=== PATIENT | female | born 1935 | race Caucasian/White ===

== ENCOUNTER → 2016-05-19 | Outpatient (CLI) | payer OTHER ==
[~2016-05-19] VITALS: Ht 152.4 cm; Wt 80.0 kg
[~2016-05-19] MED LIST: CALCIUM 600 +1 EAC2 PO; CARTIA XT120 MG PO; CINNAMON500 MG PO; ESSENTIAL WOMA1 EAC1 PO; FISH OIL 1,0001 EAC7 PO; LIBRAX CAPSULE1 EACH PO; LIPITOR40 MG PO; LOPID600 MG PO; LOSARTAN POTASS50 MG PO; PLAVIX75 MG PO; SORIATANE25 MG PO; VITAMIN D1000 INTUN PO
[2016-05-19 07:18] VITALS: BP 118/64
== END | disposition home or self-care (01) ==
LOC: IVINF 07:00
DX: M81.0 Age-related osteoporosis without current pathological fracture (principal)
CPT/HCPCS: 96365; J3489

== ENCOUNTER 2016-11-15 15:33 | Inpatient (IN) | payer OTHER ==
[~2016-11-15] VITALS: Ht 152.4 cm; Wt 98.7 kg
[~2016-11-15 15:33] MED LIST changes: +COZAAR100 MG PO; +LIPITOR20 MG PO; -LIPITOR40 MG PO; -LOSARTAN POTASS50 MG PO; -VITAMIN D1000 INTUN PO; +VITAMIN D31000 UNI2 PO
[2016-11-15 16:12] LABS: MCH 32.1 PG (29.0-34.0); MEAN PLAT.VOLUME 10.3 uM^3 (9.5-12.4); PLATELET COUNT 237 K/uL (156-360); RBC DIS.WIDTH-CV 12.2 % (11.8-14.6); RBC DIS.WIDTH-SD 41.2 % (39-53); RED BLOOD COUNT 3.93 M/uL (3.80-5.20); WHITE BLOOD COUNT 5.4 K/uL (4.1-10.2)
[2016-11-15 16:14] LABS: MCV 91.6 FL (83-99)
[2016-11-15 16:29] LABS: CHLORIDE 104 mEq/L (99-109); SODIUM 136 mEq/L (136-147)
[2016-11-15 16:31] LABS: GLUCOSE 138 mg/dL (70-99)
[2016-11-15 16:32] LABS: ANION GAP 14 MEQ/L (2-14)
[2016-11-15 16:34] LABS: GFR ESTIMATE (CALCULATED) 19 mL/min/
[2016-11-15 16:35] LABS: UREA NITROGEN (BUN) 52 mg/dL (9-23)
[2016-11-15 16:36] LABS: POTASSIUM 2.4 mEq/L (3.7-5.4)
[2016-11-15 16:51] LABS: TOTAL BILIRUBIN 0.4 mg/dL (0.0-1.0)
[2016-11-15 16:52] LABS: ALKALINE PHOSPHATASE 85 IU/L (3-129)
[2016-11-15 16:54] LABS: DIRECT BILIRUBIN 0.2 mg/dL (0.0-0.3)
[2016-11-15 16:55] LABS: LIPASE 28 U/L (1.0-51.0)
[2016-11-15 17:09] LABS: INTER. NORMALIZED RATIO 1.1; TROP-I INTERPRETATION NEGATIVE; TROPONIN-I < 0.01 ng/mL (0.0-0.30)
[2016-11-15 17:12] LABS: PTT 26.2 SEC (25-37)
[2016-11-15] MEDS ORDERED: ZANTAC300 MG PO (19:12)
[2016-11-15] MEDS ORDERED: PERPHEN-AMITRI1 EACH PO (19:14)
[2016-11-15] MEDS ORDERED: LASIX20 MG PO (19:14)
[2016-11-15] MEDS ORDERED: IRON325 M1 PO (19:16)
[2016-11-15] MEDS ORDERED: TYLENOL EXTRA500 MG PO ×2 (19:16)
[2016-11-15 19:42] LABS: ADD MIUA? NO; BILIRUBIN NEGATIVE; BLOOD NEGATIVE; COLOR YELLOW ((YELLOW)); GLUCOSE (STRIP) NEGATIVE; KETONES NEGATIVE; LEUKOCYTES NEGATIVE; NITRITE NEGATIVE; PROTEIN (STRIP) NEGATIVE; UCUL ADDED? NO; UROBILINOGEN 0.2 MG/DL (0.2-1.0)
[2016-11-15 22:16] VITALS: BP 123/59
[2016-11-15 22:58] LABS: CHLORIDE 108 mEq/L (99-109); SODIUM 138 mEq/L (136-147)
[2016-11-15 22:59] LABS: POTASSIUM 3.1 mEq/L (3.7-5.4)
[2016-11-15 23:00] LABS: GLUCOSE 126 mg/dL (70-99)
[2016-11-15 23:01] LABS: ANION GAP 10 MEQ/L (2-14)
[2016-11-15 23:04] LABS: GFR ESTIMATE (CALCULATED) 23 mL/min/; UREA NITROGEN (BUN) 40 mg/dL (9-23)
[2016-11-16 04:27] VITALS: BP 132/60
[2016-11-16 06:06] LABS: HEMATOCRIT 31.9 % (36.0-46.0); MCH 31.6 PG (29.0-34.0); MCHC 33.9 G/DL (30.0-36.0); MCV 93.3 FL (83-99); MEAN PLAT.VOLUME 10.6 uM^3 (9.5-12.4); PLATELET COUNT 224 K/uL (156-360); RBC DIS.WIDTH-CV 12.4 % (11.8-14.6); RBC DIS.WIDTH-SD 42.6 % (39-53); RED BLOOD COUNT 3.42 M/uL (3.80-5.20); WHITE BLOOD COUNT 3.6 K/uL (4.1-10.2)
[2016-11-16 06:23] LABS: ALKALINE PHOSPHATASE 61 IU/L (3-129); ANION GAP 11 MEQ/L (2-14); CHLORIDE 109 MEQ/L (99-109); GFR ESTIMATE (CALCULATED) 39 mL/min/; GLUCOSE 126 mg/dL (70-99); POTASSIUM 3.1 MEQ/L (3.7-5.4); SAMPLE HEMOLYSIS CHECK 0; SAMPLE ICTERIC CHECK 0; SAMPLE LIPEMIA CHECK 0; SODIUM 141 MEQ/L (136-147); TOTAL BILIRUBIN 0.4 MG/DL (0.0-1.0); UREA NITROGEN (BUN) 31 mg/dL (9-23)
[2016-11-16 08:16] VITALS: BP 106/62
[2016-11-16 11:45] VITALS: BP 125/67
[2016-11-16 14:13] LABS: INTERNAL CONTROL VALID? YES
[2016-11-16 14:35] LABS: C DIFF TOXIN NEGATIVE (NEGATIVE)
[2016-11-16 14:41] LABS: PROBE CHECK PASS; SPECIMEN PROCESSING CONTROL PASS
[2016-11-16 16:01] VITALS: BP 136/73
[2016-11-16 19:53] VITALS: BP 137/74
[2016-11-16 23:25] VITALS: BP 132/64
[2016-11-17 04:33] VITALS: BP 131/61
[2016-11-17 06:18] LABS: HEMATOCRIT 31.6 % (36.0-46.0); MCH 32.1 PG (29.0-34.0); MCHC 34.2 G/DL (30.0-36.0); MEAN PLAT.VOLUME 10.2 uM^3 (9.5-12.4); PLATELET COUNT 222 K/uL (156-360); RBC DIS.WIDTH-CV 12.8 % (11.8-14.6); RBC DIS.WIDTH-SD 44.2 % (39-53); RED BLOOD COUNT 3.36 M/uL (3.80-5.20); WHITE BLOOD COUNT 4.8 K/uL (4.1-10.2)
[2016-11-17 06:44] LABS: ANION GAP 7 MEQ/L (2-14); CHLORIDE 115 MEQ/L (99-109); GFR ESTIMATE (CALCULATED) 57 mL/min/; GLUCOSE 118 mg/dL (70-99); MAGNESIUM 2.4 mg/dl (1.3-2.7); POTASSIUM 2.9 MEQ/L (3.7-5.4); SAMPLE HEMOLYSIS CHECK 0; SAMPLE ICTERIC CHECK 0; SAMPLE LIPEMIA CHECK 0; SODIUM 145 MEQ/L (136-147); UREA NITROGEN (BUN) 14 mg/dL (9-23)
[2016-11-17 08:21] VITALS: BP 106/67
[2016-11-17 11:46] VITALS: BP 146/71
[2016-11-17 14:04] LABS: ERTH.SED.RATE 16 MM/HR (0-30)
[2016-11-17 15:53] VITALS: BP 90/53
[2016-11-17 19:56] VITALS: BP 119/56
[2016-11-17 23:55] VITALS: BP 92/54
[2016-11-18 04:01] VITALS: BP 106/59
[2016-11-18 08:02] VITALS: BP 120/61
[2016-11-18 08:34] LABS: HEMATOCRIT 30.2 % (36.0-46.0); MCH 33.7 PG (29.0-34.0); MCHC 35.1 G/DL (30.0-36.0); MCV 95.9 FL (83-99); MEAN PLAT.VOLUME 10.6 uM^3 (9.5-12.4); PLATELET COUNT 208 K/uL (156-360); RBC DIS.WIDTH-CV 13.4 % (11.8-14.6); RBC DIS.WIDTH-SD 46.5 % (39-53); RED BLOOD COUNT 3.15 M/uL (3.80-5.20); WHITE BLOOD COUNT 5.4 K/uL (4.1-10.2)
[2016-11-18 09:00] LABS: ANION GAP 8 MEQ/L (2-14); CHLORIDE 117 MEQ/L (99-109); GFR ESTIMATE (CALCULATED) > 59 mL/min/; GLUCOSE 110 mg/dL (70-99); SAMPLE HEMOLYSIS CHECK 0; SAMPLE ICTERIC CHECK 0; SAMPLE LIPEMIA CHECK 0; SODIUM 145 MEQ/L (136-147); UREA NITROGEN (BUN) 10 mg/dL (9-23)
[2016-11-18 09:04] VITALS: BP 122/60
[2016-11-18 09:05] LABS: POTASSIUM 4.2 MEQ/L (3.7-5.4)
[2016-11-18 11:41] VITALS: BP 108/58
[2016-11-18 16:27] VITALS: BP 131/62
[2016-11-18 20:00] VITALS: BP 126/60
[2016-11-19] VITALS: BP 116/58
[2016-11-19 04:14] VITALS: BP 119/62
[2016-11-19 06:41] LABS: ANION GAP 7 MEQ/L (2-14); CHLORIDE 118 MEQ/L (99-109); GFR ESTIMATE (CALCULATED) > 59 mL/min/; GLUCOSE 96 mg/dL (70-99); POTASSIUM 3.4 MEQ/L (3.7-5.4); SAMPLE HEMOLYSIS CHECK 0; SAMPLE ICTERIC CHECK 0; SAMPLE LIPEMIA CHECK 0; SODIUM 145 MEQ/L (136-147); UREA NITROGEN (BUN) 6 mg/dL (9-23)
[2016-11-19 07:20] VITALS: BP 116/70
[2016-11-19] MEDS ORDERED: METRONIDAZOLE500 MG PO (10:30)
[2016-11-19] MEDS ORDERED: IMODIUM A-D2 M2 PO (10:32)
[2016-11-19] MEDS ORDERED: PREDNISONE10 MG PO (10:32)
[2016-11-19] MEDS ORDERED: K-DUR20 MEQ PO (10:34)
[2016-11-19] MEDS ORDERED: PHOSPHA250 MG PO (10:35)
[2016-11-19 11:17] VITALS: BP 121/69
== END 2016-11-19 13:30 | disposition home or self-care (01) | DRG 392 ==
LOC: EME 15:33 → 3EAST 20:35 → EDOF 20:35 → ENRESERV 20:37 → 3EAST 22:12
PROVIDERS: Emergency Medicine; Internal Medicine; Internal Medicine Gastroenterology; Physician Assistant
DX: K52.831 Collagenous colitis (principal); N17.9 Acute kidney failure, unspecified; E87.2 Acidosis; E87.6 Hypokalemia; E83.39 Other disorders of phosphorus metabolism; R63.4 Abnormal weight loss; E86.0 Dehydration; I25.10 Atherosclerotic heart disease of native coronary artery without angina pectoris; I12.9 Hypertensive chronic kidney disease with stage 1 through stage 4 chronic kidney disease, or unspecified chronic kidney disease; N18.3 Chronic kidney disease, stage 3 (moderate); J45.909 Unspecified asthma, uncomplicated; F41.9 Anxiety disorder, unspecified; E66.9 Obesity, unspecified; Z86.73 Personal history of transient ischemic attack (TIA), and cerebral infarction without residual deficits; Z95.5 Presence of coronary angioplasty implant and graft; Z79.02 Long term (current) use of antithrombotics/antiplatelets; Z85.828 Personal history of other malignant neoplasm of skin; Z68.41 Body mass index [BMI] 40.0-44.9, adult
CPT/HCPCS: 74176; 80048; 80048 91; 80053; 80076; 81003; 82040; 83516 90; 83605; 83630; 83690; 83735; 83880; 84100; 84439; 84443; 84484; 85027; 85610; 85651; 85730; 87177; 87493; 88305; 88313; 93005; 99281; 99285; J1644; J2405; J3480; J7030; J7050; J7512; S0030

== ENCOUNTER 2017-07-22 08:46 | Observation (INO) | payer OTHER ==
[~2017-07-22] VITALS: Ht 152.4 cm; Wt 74.7 kg
[~2017-07-22 08:46] MED LIST changes: -CALCIUM 600 +1 EAC2 PO; +CALCIUM600 M1 PO; +IMODIUM A-D2 M2 PO; +IRON325 M1 PO; +K-DUR20 MEQ PO; +LASIX20 MG PO; -LIPITOR20 MG PO; +LIPITOR40 MG PO; +METRONIDAZOLE500 MG PO; +PERPHEN-AMITRI1 EACH PO; +PHOSPHA250 MG PO; +PREDNISONE10 MG PO; +TYLENOL EXTRA500 MG PO; +ZANTAC300 MG PO
[2017-07-22 09:27] LABS: HEMATOCRIT 36.8 % (36.0-46.0); HEMOGLOBIN 12.9 G/DL (11.9-15.5); MCH 32.7 PG (29.0-34.0); MCHC 35.1 G/DL (30.0-36.0); MCV 93.2 FL (83-99); PLATELET COUNT 179 K/uL (156-360); RBC DIS.WIDTH-CV 12.7 % (11.8-14.6); RBC DIS.WIDTH-SD 43.8 % (39-53); RED BLOOD COUNT 3.95 M/uL (3.80-5.20); WHITE BLOOD COUNT 7.1 K/uL (4.1-10.2)
[2017-07-22 09:41] LABS: CHLORIDE 104 mEq/L (99-109); POTASSIUM 4.2 mEq/L (3.7-5.4); SODIUM 142 mEq/L (136-147)
[2017-07-22 09:42] LABS: GLUCOSE 107 mg/dL (70-99)
[2017-07-22 09:46] LABS: GFR ESTIMATE (CALCULATED) 57 mL/min/
[2017-07-22 09:47] LABS: TROP-I INTERPRETATION NEGATIVE; TROPONIN-I < 0.01 ng/mL (0.0-0.30); UREA NITROGEN (BUN) 18 mg/dL (9-23)
[2017-07-22] MEDS ORDERED: GLUCOSAMINE &1 EAC1 PO (13:24)
[2017-07-22] MEDS ORDERED: CLOBETASOL PROP60 GM TP (13:24)
[2017-07-22] MEDS ORDERED: FUROSEMIDE20 MG PO (13:25)
[2017-07-22 17:03] LABS: TROP-I INTERPRETATION NEGATIVE; TROPONIN-I < 0.01 ng/mL (0.0-0.30)
[2017-07-22 17:09] LABS: HDL CHOLESTEROL 31 MG/DL (Desirable>=50); LDL CHOLESTEROL 71 mg/dL (Desirable<100); NON-HDL CHOLESTEROL 117 mg/dL (Desirable<160); TOTAL CHOLESTEROL 148 mg/dL (Desirable<200); TRIGLYCERIDES 231 MG/DL (Normal: <150)
[2017-07-22 21:01] VITALS: BP 134/80
[2017-07-22 23:14] LABS: TROP-I INTERPRETATION NEGATIVE; TROPONIN-I < 0.01 ng/mL (0.0-0.30)
[2017-07-22 23:55] VITALS: BP 145/71
[2017-07-23 04:33] VITALS: BP 141/63
[2017-07-23 08:49] VITALS: BP 140/76
[2017-07-23 11:16] VITALS: BP 140/66
== END 2017-07-23 13:26 | disposition home or self-care (01) ==
LOC: EME 08:46 → EDOF 12:03 → 4SOUTH 12:03 → EDOF 12:03 → ENRESERV 12:04 → 4SOUTH 14:42
PROVIDERS: Internal Medicine
DX: R07.9 Chest pain, unspecified (principal); I25.10 Atherosclerotic heart disease of native coronary artery without angina pectoris; Z95.5 Presence of coronary angioplasty implant and graft; I44.4 Left anterior fascicular block; I12.9 Hypertensive chronic kidney disease with stage 1 through stage 4 chronic kidney disease, or unspecified chronic kidney disease; N18.9 Chronic kidney disease, unspecified; Z86.73 Personal history of transient ischemic attack (TIA), and cerebral infarction without residual deficits; Z87.442 Personal history of urinary calculi; E78.5 Hyperlipidemia, unspecified; L43.9 Lichen planus, unspecified; F41.9 Anxiety disorder, unspecified; Z90.710 Acquired absence of both cervix and uterus; Z90.49 Acquired absence of other specified parts of digestive tract; Z82.49 Family history of ischemic heart disease and other diseases of the circulatory system
CPT/HCPCS: 71046; 80048; 80061; 84484; 85027; 93005; 99281; 99285; G0378; J1650; Q0175

== ENCOUNTER → 2017-08-02 | Outpatient (CLI) | payer OTHER ==
[~2017-08-02] VITALS: Ht 152.4 cm; Wt 76.0 kg
[~2017-08-02] MED LIST changes: +CLOBETASOL PROP60 GM TP; +FUROSEMIDE20 MG PO; +GLUCOSAMINE &1 EAC1 PO
[2017-08-02 07:43] VITALS: BP 133/69
== END | disposition home or self-care (01) ==
LOC: IVINF 08-01 07:30
DX: M81.0 Age-related osteoporosis without current pathological fracture (principal)
CPT/HCPCS: 96365; J3489